=== PATIENT | male | born 1965 | race Hispanic/Latino ===

== ENCOUNTER → 2019-07-24 | Outpatient (CLI) | payer BC ==
[~2019-07-24] MED LIST: IOHEXOL 350 MG/ML 100ML INFUS..BTL IV ONE
== END | disposition home or self-care (01) ==
LOC: RAH 09:40
PROVIDERS: ATTEND Internal Medicine Gastroenterology
DX: N42.89 Other specified disorders of prostate (principal); J98.11 Atelectasis; R63.4 Abnormal weight loss
CPT/HCPCS: 74178; Q9967